=== PATIENT | male | born 1990 | race Caucasian/White ===

== ENCOUNTER 2024-10-09 11:52 | Emergency (ER) | payer OTHER ==
[~2024-10-09] VITALS: Ht 185.4 cm; Wt 104.5 kg
[2024-10-09 12:00] VITALS: TEMP 98.5
[2024-10-09] MEDS: LIDOCAINE 1% 10 ML VIAL SQ ONE (12:36)
[2024-10-09] MEDS: KETOROLAC TROMETHAMINE 60 MG/2 ML VIAL IM ONE (12:36)
[2024-10-09] MEDS: PERTUSS(ACELL),DIPH,TET/PF 0.5 ML SYRINGE [ADULT] IM. ONE (12:37)
[2024-10-09] MEDS ORDERED: IBUP-1492 PO (14:16)
[2024-10-09 14:30] VITALS: BP 131/74; PULSE 95; RESP 16; O2SAT 98
== END 2024-10-09 15:59 | disposition home or self-care (01) ==
LOC: EMS 11:52
DX: S01.511A Laceration without foreign body of lip, initial encounter (principal); S80.212A Abrasion, left knee, initial encounter; Y04.8XXA Assault by other bodily force, initial encounter; Y93.89 Activity, other specified; Y92.481 Parking lot as the place of occurrence of the external cause; Y99.8 Other external cause status
CPT/HCPCS: 99285; 70486; 90715; 90471; 96372; J1885; J3490